=== PATIENT | female | born 1985 | race Caucasian/White ===

== ENCOUNTER 2016-11-17 21:31 | Inpatient (IN) ==
[2016-11-17] MEDS ORDERED: Ondansetron 4 MG/2 ML VIAL IVP ONE ×2 (21:58→23:51)
[2016-11-17] MEDS ORDERED: 0.9 % Sodium Chloride 1,000 ML IVC ONE ×2 (21:58→23:19)
[2016-11-17] MEDS ORDERED: Ketorolac 30 MG/ML VIAL IVP ONE (21:58)
[2016-11-17 22:02] LABS: Bilirubin,Urine Negative (Negative); Blood,Urine Moderate (Negative); Clarity,Urine Cloudy (Clear); Color,Urine Yellow (Yellow); Glucose,Urine (UA) Normal (Normal); Ketones,Urine Negative (Negative); Leukocyte Esterase,Urine Small (Negative); Nitrite,Urine Positive (Negative); PH,Urine 6.5 pH Units (5.0-8.0); Protein,Urine 30 mg/dL (Neg-Trace); Specific Gravity,Urine 1.018 (1.010-1.025); Urobilinogen,Urine Normal (Normal)
[2016-11-17 22:04] LABS: Bacteria,Urine Many per hpf (None-Few); Hyaline Casts,Urine None Seen per lpf (None-Few); RBC,Urine 15-30 per hpf (0-3); Squamous Epithelial Cell,Urine Many per lpf (None-Few)
--- NOTE | 2016-11-17 22:35 | Emergency Department Note ---
Disposition Clinical Impression: Pyelonephritis Disposition: Admitted As Inpatient Condition: Good Time of Disposition: 01:12 General Adult HPI - General Chief complaint: ED Abdominal Pain Stated complaint: right flank pain Time Seen by Provider: 11/17/16 21:38 Source: patient Mode of arrival: ambulatory Limitations: no limitations Nursing Notes Reviewed: Yes Vital Signs Reviewed: Yes - History of Present Illness HPI Narrative: Three-day history of right-sided flank pain. Denies any nausea vomiting or diarrhea. Denies any burning on urination however does report dark urine and a foul smell to her urine. Denies any fevers at home but is reporting a fever here. There are no provoking or alleviating factors. Pain Scale: 10 - Related Data Home Medications Medication Instructions Recorded Confirmed Buspirone HCl [Buspar] 10 mg PO TID 11/18/16 11/18/16 Quetiapine Fumarate [SEROquel] 300 mg PO HS 11/18/16 11/18/16 Allergies Allergy/AdvReac Type Severity Reaction Status Date / Time zolmitriptan [From Zomig] Allergy See Verified 11/17/16 21:35 Comments Review of Systems: Patient complaining of a three-day history of right flank pain. She states that her urine is dark in color and has a foul odor. She denies any dysuria. She denies any fevers at home but does have a fever here. No radiation of the pain. No alleviating factors for the pain. All systems ED: reviewed and negative except as stated. Past Medical History - Past Medical History Medical history: Reports: no medical history - Social History Smoking Status: Current every day smoker Smokeless Tobacco Status: No Alcohol use: Reports: none Drug use: Reports: none Physical Exam - General Limitations: no limitations General appearance: alert, in distress (Appears in pain) - Head Head exam: atraumatic, normocephalic, normal inspection - Eye Eye exam: Present: normal appearance, PERRL, EOMI, scleral icterus. Absent: nystagmus - ENT ENT exam: normal exam, normal oropharynx, mucous membranes moist - Neck Neck exam: Present: normal inspection, full ROM, trachea midline. Absent: tenderness, meningismus - Chest Chest inspection: Present: normal inspection, tenderness. Absent: symmetric chest wall rise - Respiratory Respiratory exam: Present: normal lung sounds bilaterally. Absent: respiratory distress, wheezes - Cardiovascular Cardiovascular exam: Present: regular rate, normal rhythm, normal heart sounds - Abdominal Exam Abdominal exam: Present: soft, Non-Tender, normal bowel sounds. Absent: tenderness, distention, guarding, rebound, rigidity, organomegaly - Extremities Exam Extremities exam: Present: normal inspection, full ROM, normal capillary refill. Absent: tenderness, pedal edema - Back Exam Back exam: Present: normal inspection, full ROM, CVA tenderness (R). Absent: tenderness - Neurological Exam Neurological exam: Present: alert, oriented X3 - Psychiatric Psychiatric exam: Present: normal affect, normal mood - Skin Skin exam: Present: warm, dry, intact, normal color. Absent: rash, cyanosis, diaphoresis Course Course Narrative: Female patient presenting to the emergency department with a three-day history of right side pain. She denies any fevers or chills. She denies any nausea vomiting or diarrhea. She is febrile while she is here. She reports that she has no burning on urination or vaginal discharge. She does report her urine is dark in color and has a foul odor. She reports Drinking a lot of soda. She states the pain is increased when she takes a deep breath. She denies any shortness of breath or chest pain. On exam she is resting comfortably in bed and is alert and oriented. Her left sounds are clear heart tones are normal. Her abdomen is soft and nontender on deep palpation. There is no signs of organomegaly or any masses noted on exam. She points to where the pain is and this appears to be around the tip of rib 12. It is around mid axillary line. On the right. She has a negative Rory sign on both sides. There is no tenderness at McBurney's point and there is no Chu sign. We are providing patient with pain medication while she is here. We are also giving her fluid and did a basic lab workup. She does have a urinary tract infection by UA. She is positive for nitrites as well as look esterase. Also has some blood in her urine. Patient has a pyelonephritis. We will start her on Rocephin at this time. We are still awaiting lab work. We will scan patient's abdomen. We will admit Her to the hospital. - Reevaluation(s) Reevaluation #1: Patient's CT shows some punctate renal calculi but still in the kidneys. These are not moving currently. It also shows some perinephric stranding around her right kidney which is consistent with our diagnosis of pyelonephritis. Time: 01:11 - Consultations Consultation #1: Dr Benton accepted patient in stable condition. Time: 00:32 Vital Signs Temperature 101.7 F H 11/17/16 21:32 Pulse Rate 126 11/17/16 21:32 Respiratory Rate 16 11/17/16 21:32 Blood Pressure 111/73 11/17/16 21:32 O2 Sat by Pulse Oximetry 97 11/17/16 21:32 Temperature 99.3 F 11/18/16 01:15 Pulse Rate 98 11/18/16 01:15 Respiratory Rate 20 11/18/16 01:15 Blood Pressure 105/69 11/18/16 01:15 O2 Sat by Pulse Oximetry 100 11/18/16 01:15 Oxygen Delivery Oxygen Delivery Room Air Medical Decision Making - Lab Data Lab results reviewed: Yes I reviewed the patient's lab results. Result diagrams: 11/17/16 22:20 11/17/16 22:20 Lab Results 11/17/16 11/17/16 11/17/16 Range/Units 21:58 22:20 22:20 WBC 14.0 H (4.3-11.1) K/mcL RBC 4.99 H (3.82-4.97) M/mcL Hgb 14.7 (11.5-15.4) g/dL Hct 44.6 (35.3-44.9) % MCV 89.4 (83.0-100.0) fL MCH 29.5 (28.0-33.3) pg MCHC 33.0 (31.6-35.5) g/dL RDW 12.1 (11.5-14.5) % Plt Count 271 (140-400) K/mcL MPV 10.6 (9.4-12.4) fL Immature Gran % 0.4 (0-4) % Seg Neutrophils % 82.3 % Lymphocytes % 10.6 % Monocytes % 6.2 % Eosinophils % 0.4 % Basophils % 0.1 % Neutrophils # 11.5 H (1.6-8.9) K/mcL Lymphocytes # 1.5 (0.6-4.6) K/mcL Monocytes # 0.9 (0.0-1.3) K/mcL Eosinophils # 0.1 (0.0-0.6) K/mcL Basophils # 0.0 (0.0-0.2) K/mcL Sodium 137 (136-145) mEq/L Potassium 3.7 (3.5-4.5) mEq/L Chloride 102 (98-109) mEq/L Carbon Dioxide 25 (19-29) mEq/L BUN 6 L (7-20) mg/dL Creatinine 0.75 (0.57-1.11) mg/dL Est GFR ( Amer) > 60 (> 60) Est GFR (Non-Af Amer) > 60 (> 60) BUN/Creatinine Ratio 8 (6-26) Glucose 112 H (70-99) mg/dL Calculated Osmolality 282 (280-300) Lactic Acid (0.5-2.2) mmol/L Calcium 9.6 (8.6-10.8) mg/dL Total Bilirubin 0.6 (0.2-1.2) mg/dL Direct Bilirubin 0.2 (0.0-0.5) mg/dL Indirect Bilirubin 0.4 (0.0-1.2) mg/dL AST 30 (5-34) Units/L ALT 49 (0-55) Units/L Alkaline Phosphatase 60 (38-126) Units/L Serum Total Protein 7.7 (6.0-8.3) g/dL Albumin 3.8 (3.5-5.0) g/dL Globulin 3.9 H (2.4-3.5) g/dL Albumin/Globulin Ratio 1.0 L (1.1-2.2) Lipase 13 (8-78) Units/L Urine Color Yellow (Yellow) Urine Clarity Cloudy A (Clear) Urine pH 6.5 (5.0-8.0) pH Units Ur Specific [place] 1.018 (1.010-1.025) Urine Protein 30 H (Neg-Trace) mg/dL Urine Glucose (UA) Normal (Normal) mg/dL Urine Ketones Negative (Negative) mg/dL Urine Blood Moderate H (Negative) Urine Nitrite Positive A (Negative) Urine Bilirubin Negative (Negative) Urine Urobilinogen Normal (Normal) mg/dL Ur Leukocyte Esterase Small H (Negative) Urine Microscopic RBC 15-30 H (0-3) per hpf Urine Microscopic WBC 5-15 H (0-3) per hpf Ur Squamous Epith Cells Many H (None-Few) per lpf Urine Bacteria Many H (None-Few) per hpf Hyaline Casts None Seen (None-Few) per lpf Ur Culture Indicated? YES A (NO) 11/17/16 Range/Units 22:20 WBC (4.3-11.1) K/mcL RBC (3.82-4.97) M/mcL Hgb (11.5-15.4) g/dL Hct (35.3-44.9) % MCV (83.0-100.0) fL MCH (28.0-33.3) pg MCHC (31.6-35.5) g/dL RDW (11.5-14.5) % Plt Count (140-400) K/mcL MPV (9.4-12.4) fL Immature Gran % (0-4) % Seg Neutrophils % % Lymphocytes % % Monocytes % % Eosinophils % % Basophils % % Neutrophils # (1.6-8.9) K/mcL Lymphocytes # (0.6-4.6) K/mcL Monocytes # (0.0-1.3) K/mcL Eosinophils # (0.0-0.6) K/mcL Basophils # (0.0-0.2) K/mcL Sodium (136-145) mEq/L Potassium (3.5-4.5) mEq/L Chloride (98-109) mEq/L Carbon Dioxide (19-29) mEq/L BUN (7-20) mg/dL Creatinine (0.57-1.11) mg/dL Est GFR ( Amer) (> 60) Est GFR (Non-Af Amer) (> 60) BUN/Creatinine Ratio (6-26) Glucose (70-99) mg/dL Calculated Osmolality (280-300) Lactic Acid 1.1 (0.5-2.2) mmol/L Calcium (8.6-10.8) mg/dL Total Bilirubin (0.2-1.2) mg/dL Direct Bilirubin (0.0-0.5) mg/dL Indirect Bilirubin (0.0-1.2) mg/dL AST (5-34) Units/L ALT (0-55) Units/L Alkaline Phosphatase (38-126) Units/L Serum Total Protein (6.0-8.3) g/dL Albumin (3.5-5.0) g/dL Globulin (2.4-3.5) g/dL Albumin/Globulin Ratio (1.1-2.2) Lipase (8-78) Units/L Urine Color (Yellow) Urine Clarity (Clear) Urine pH (5.0-8.0) pH Units Ur Specific [place] (1.010-1.025) Urine Protein (Neg-Trace) mg/dL Urine Glucose (UA) (Normal) mg/dL Urine Ketones (Negative) mg/dL Urine Blood (Negative) Urine Nitrite (Negative) Urine Bilirubin (Negative) Urine Urobilinogen (Normal) mg/dL Ur Leukocyte Esterase (Negative) Urine Microscopic RBC (0-3) per hpf Urine Microscopic WBC (0-3) per hpf Ur Squamous Epith Cells (None-Few) per lpf Urine Bacteria (None-Few) per hpf Hyaline Casts (None-Few) per lpf Ur Culture Indicated? (NO) - Radiology Data Radiology results reviewed: Yes I reviewed the patient's radiology results. Abdomen/Pelvis CT 11/18/16 23:51 IMPRESSION: 1. Punctate bilateral nonobstructing renal calculi. No distal calculi are identified. 2. Right-sided perinephric fat stranding may indicate pyelonephritis. D/ / Tulio Kaba MD / Tulio Kaba MD Interpreting Provider: Tulio Kaba MD Attestation Statement - Attestation Attestation: I personally interviewed and examined this patient and my medical decision- making was reviewed with the ED Resident Physician, Dr. Barnett I agree with the documented findings, disposition and treatment plan as described except to the extent set forth below. Patient is a 31-year-old white female who presents to emergency today with a three-day history of gradually worsening right flank pain and urinary symptoms. Patient's also complaining of some mild nausea. She arrives febrile and tachycardic with a stable blood pressure. Patient states that her urine foul- smelling and dark in color although denies any gross blood. Patient denies any anterior abdominal pain, no bowel changes, no other associated symptoms. I agree with patient's physical exam findings as documented in the chart. Urinalysis showed findings consistent with urinary tract infection. Patient with a leukocytosis and a left shift. is negative. Upon arrival patient had IV saline well-established was placed on lead carpenter and pulse ox and had IV fluids initiated as well as Toradol for fever. After urinalysis was reviewed patient was started on IV Rocephin. Patient's vital signs improved after IV fluid resuscitation. Discussed patient with results of the labs and urinalysis and likely suspect pyelonephritis. Recommended admission to the hospital with patient is agreement with. On reevaluation patient was still complaining of moderate right flank pain. Patient does have moderate blood in the urine which could be from her infection but we will send the patient for CT imaging to rule out kidney stone as patient's never had this in the past. We will plan to bring the patient in for continued IV antibiotics and if the stone is present we will contact urology consult them from the ED.
[2016-11-17 22:36] LABS: Basophils % 0.1 %; Eosinophils # 0.1 K/mcL (0.0-0.6); Eosinophils % 0.4 %; Hematocrit 44.6 % (35.3-44.9); Hemoglobin 14.7 g/dL (11.5-15.4); Immature Granulocytes % 0.4 % (0-4); Lymphocytes # 1.5 K/mcL (0.6-4.6); Lymphocytes % 10.6 %; Mean Corpuscular Hemoglobin 29.5 pg (28.0-33.3); Mean Corpuscular Volume 89.4 fL (83.0-100.0); Mean Platelet Volume 10.6 fL (9.4-12.4); Monocytes # 0.9 K/mcL (0.0-1.3); Monocytes % 6.2 %; Neutrophils # 11.5 K/mcL (1.6-8.9); Platelet Count 271 K/mcL (140-400); Red Blood Count 4.99 M/mcL (3.82-4.97); Red Cell Distribution Width 12.1 % (11.5-14.5); Segmented Neutrophils % 82.3 %
[2016-11-17 22:52] LABS: Alanine Aminotransferase 49 Units/L (0-55); Albumin 3.8 g/dL (3.5-5.0); Alkaline Phosphatase 60 Units/L (38-126); Aspartate Amino Transferase 30 Units/L (5-34); BUN/Creatinine Ratio 8 (6-26); Bilirubin,Direct 0.2 mg/dL (0.0-0.5); Bilirubin,Indirect 0.4 mg/dL (0.0-1.2); Bilirubin,Total 0.6 mg/dL (0.2-1.2); Blood Urea Nitrogen 6 mg/dL (7-20); Calcium 9.6 mg/dL (8.6-10.8); Carbon Dioxide 25 mEq/L (19-29); Chloride 102 mEq/L (98-109); Globulin 3.9 g/dL (2.4-3.5); Glucose 112 mg/dL (70-99); Lipase 13 Units/L (8-78); Osmolality,Calculated 282 (280-300); Potassium 3.7 mEq/L (3.5-4.5); Sodium 137 mEq/L (136-145); Total Protein 7.7 g/dL (6.0-8.3); eGFR For African Americans > 60 (> 60); eGFR For Non-African Americans > 60 (> 60)
[2016-11-17] MEDS ORDERED: *HR* Morphine 2 MG/ML SYRINGE IVP ONE (23:51)
[2016-11-18] MEDS ORDERED: *HR* HYDROmorphone (PF) 1 MG/ML SYRINGE IVP ONE (02:03)
[2016-11-18] MEDS ORDERED: Naloxone 0.4 MG/ML INJ IVP PRN (04:04)
[2016-11-18] MEDS ORDERED: Acetaminophen 325 MG TABLET PO PRN (04:09)
--- NOTE | 2016-11-18 04:11 | Internal Med History&Physical ---
Date of Encounter: 11/18/16 Time of Encounter: 04:10 Assessment and Plan (1) Acute pyelonephritis Current visit: Yes Status: Acute Emperically treat with Ceftriaxone. Urine cultures pending. Titrate antibiotics based on cultures. (2) Sepsis Current visit: Yes Status: Acute Likely secondary to UTI/pyelonephritis. Continue with the IV fluids and antibiotics. Lactate level is not elevated. Qualifiers: Sepsis type: sepsis due to unspecified organism Qualified Code(s): A41.9 - Sepsis, unspecified organism (3) Nephrolithiasis Current visit: Yes Status: Acute Non-obstructive calculi. No acute intervention at this time (4) DVT prophylaxis Current visit: Yes Status: Acute SCDs Internal Medicine - H&P: HPI Chief complaint: Right flank pain Admitted From: Emergency Dept Plans for Post Hospital Care: Home History of present illness: Ms. Chen is a 31 year old female With h/o cholecystectomy and family h/o nephrolithiasis presents with three-day history of right-sided flank pain, which is gradually worsening. Sharp, severe pain, which is worse on deep breath and cough. Denies burning on urination, but reports dark urine and foul smell to her urine. Denies any fevers at home but was febrile with temperature of 101.7F. Denies nausea, vomiting, chest pain, shortness of breath, cough, expectoration, changes in bowel habits. Patient was evaluated in the emergency department. Urine test negative and had CT scan of the abdomen and pelvis, which was suspicious for right pyelonephritis. she was given ceftriaxone and admitted to the hospitalist service for further management. Past Med Surg Social Fam HX - Past Medical History Medical history: no medical history - Social History Smoking Status: Current every day smoker Smokeless Tobacco Status: No Alcohol use: none Drug use: none - Family History Father Hx Family Cardiac Disorders: Yes (HTN) Hx Family Endocrine Disorder: Yes (DM) Internal Medicine - H&P: Meds Buspirone HCl [Buspar] 10 mg PO TID 11/18/16 [History] Quetiapine Fumarate [SEROquel] 300 mg PO HS 11/18/16 [History] Allergies zolmitriptan [From Zomig] Allergy (Verified 11/17/16 21:35) See Comments All Systems PM: A 10-system review of systems was performed and is negative for pertinent findings except as documented above in the HPI. - Constitutional Vitals: Temp Pulse Resp BP Pulse Ox 99.3 F 98 20 105/69 100 11/18/16 01:15 11/18/16 01:15 11/18/16 01:15 11/18/16 01:15 11/18/16 01:15 Exam: General: Not in acute distress at the time of my evaluation HEENT: Oral mucosa is moist. No conjunctival palor or scleral icterus Neck: No obvious neck swellings Lungs: Clear to auscultation Cardiac: Regular rate and rhythm. No significant murmurs Abdomen: Soft, non tender. No significant renal angle tenderness. Bowel sounds present Genitourinary: No tellez catheter Neurological: Alert and oriented. No gross localizing deficits Psych: Not aggressive or agitated Extremities: no significant leg edema Skin: No generalized rash Internal Med - H&P Results - Labs CBC & Chem 7: 11/18/16 04:30 11/18/16 04:30 - Impressions ITS Impressions Abdomen/Pelvis CT 11/18/16 23:51 IMPRESSION: 1. Punctate bilateral nonobstructing renal calculi. No distal calculi are identified. 2. Right-sided perinephric fat stranding may indicate pyelonephritis. D/ / Tulio Kaba MD / Tulio Kaba MD Interpreting Provider: Tulio Kaba MD
[2016-11-18] MEDS: 0.9 % Sodium Chloride 1,000 ML IVC SCH ×4 (04:39→21:10)
[2016-11-18] MEDS: Ketorolac 30 MG/ML VIAL IVP PRN ×3 (04:41→19:29)
[2016-11-18 05:15] LABS: Basophils % 0.1 %; Eosinophils # 0.1 K/mcL (0.0-0.6); Eosinophils % 0.6 %; Hematocrit 35.7 % (35.3-44.9); Immature Granulocytes % 0.3 % (0-4); Lymphocytes # 2.6 K/mcL (0.6-4.6); Mean Corpuscular HGB Conc 33.1 g/dL (31.6-35.5); Mean Corpuscular Hemoglobin 29.9 pg (28.0-33.3); Mean Corpuscular Volume 90.6 fL (83.0-100.0); Mean Platelet Volume 11.1 fL (9.4-12.4); Monocytes # 1.2 K/mcL (0.0-1.3); Monocytes % 7.7 %; Neutrophils # 11.5 K/mcL (1.6-8.9); Platelet Count 233 K/mcL (140-400); Red Blood Count 3.94 M/mcL (3.82-4.97); Red Cell Distribution Width 12.3 % (11.5-14.5); Segmented Neutrophils % 74.3 %
[2016-11-18 05:16] LABS: Hemoglobin 11.8 g/dL (11.5-15.4)
[2016-11-18 05:25] LABS: BUN/Creatinine Ratio 8 (6-26); Blood Urea Nitrogen 6 mg/dL (7-20); Carbon Dioxide 21 mEq/L (19-29); Chloride 108 mEq/L (98-109); Glucose 154 mg/dL (70-99); Osmolality,Calculated 283 (280-300); Potassium 3.1 mEq/L (3.5-4.5); Sodium 136 mEq/L (136-145); eGFR For African Americans > 60 (> 60); eGFR For Non-African Americans > 60 (> 60)
[2016-11-18 05:28] LABS: Chol/HDL Ratio 2.9 (0-4.9)
[2016-11-18 05:29] LABS: Calcium 7.8 mg/dL (8.6-10.8)
[2016-11-18] MEDS: traMADol 50 MG TABLET PO PRN ×3 (07:39→23:08)
[2016-11-18] MEDS: Lactobacillus 1 EACH CAP.SPRINK PO SCH ×2 (08:52→22:00)
[2016-11-19] MEDS: 0.9 % Sodium Chloride 1,000 ML IVC SCH ×3 (03:53→16:13)
[2016-11-19] MEDS: Ketorolac 30 MG/ML VIAL IVP PRN ×2 (03:55→13:35)
[2016-11-19 04:35] LABS: Basophils % 0.2 %; Eosinophils # 0.2 K/mcL (0.0-0.6); Eosinophils % 1.6 %; Hematocrit 37.2 % (35.3-44.9); Hemoglobin 11.9 g/dL (11.5-15.4); Immature Granulocytes % 0.4 % (0-4); Lymphocytes # 2.2 K/mcL (0.6-4.6); Lymphocytes % 24.1 %; Mean Corpuscular Hemoglobin 29.8 pg (28.0-33.3); Mean Corpuscular Volume 93.2 fL (83.0-100.0); Mean Platelet Volume 11.2 fL (9.4-12.4); Monocytes # 0.9 K/mcL (0.0-1.3); Monocytes % 9.4 %; Platelet Count 209 K/mcL (140-400); Red Blood Count 3.99 M/mcL (3.82-4.97); Red Cell Distribution Width 12.3 % (11.5-14.5); Segmented Neutrophils % 64.3 %
[2016-11-19 04:58] LABS: BUN/Creatinine Ratio 15 (6-26); Blood Urea Nitrogen 10 mg/dL (7-20); Calcium 8.3 mg/dL (8.6-10.8); Carbon Dioxide 25 mEq/L (19-29); Chloride 111 mEq/L (98-109); Glucose 98 mg/dL (70-99); Osmolality,Calculated 293 (280-300); Potassium 3.8 mEq/L (3.5-4.5); Sodium 142 mEq/L (136-145); eGFR For African Americans > 60 (> 60); eGFR For Non-African Americans > 60 (> 60)
[2016-11-19] MEDS: Lactobacillus 1 EACH CAP.SPRINK PO SCH ×2 (07:59→21:01)
--- NOTE | 2016-11-19 15:15 | Internal Med Progress Note ---
Date of Encounter: 11/19/16 Time of Encounter: 15:12 - Assessment and plan (1) Sepsis Current Visit: Yes Status: Acute Assessment and plan: resolved. Qualifiers: Sepsis type: sepsis due to unspecified organism Qualified Code(s): A41.9 - Sepsis, unspecified organism (2) Acute pyelonephritis Current Visit: Yes Status: Acute Assessment and plan: clinically better urine cx growing gram negative rods, final cx sensitivity awaiting will contiue IV ceftriaxone for now until final results. leucocytosis has resolved. denies any urinary symptoms. (3) Nephrolithiasis Current Visit: Yes Status: Acute Assessment and plan: has b/l non obstructive punctate renal stones, no active intervention needed at this time. - Subjective Interval history: Patient seen at the bedside, admitted for UTI/pyelonephritis. Denies any complaints, no fevers or leukocytosis. - Constitutional Vitals: Temp Pulse Resp BP Pulse Ox 98.1 F 99 16 102/66 99 11/19/16 11:27 11/19/16 11:27 11/19/16 11:27 11/19/16 11:27 11/19/16 11:27 General appearance: Present: A&O X 3, no acute distress Exam: neck - supple Chest bilateral clear, no added sounds. CVS S1 and S2, no murmurs rubs or gallops. Abdomen soft, nontender, bowel sounds are present. Extremities no edema. Neuro alert and awake, no focal neuro deficits Internal Medicine: Result - Labs CBC & Chem 7: 11/19/16 03:49 11/19/16 03:49 Labs: Short CBC 11/19/16 Range/Units 03:49 WBC 9.3 (4.3-11.1) K/mcL Hgb 11.9 (11.5-15.4) g/dL Hct 37.2 (35.3-44.9) % Plt Count 209 (140-400) K/mcL Neutrophils # 6.0 (1.6-8.9) K/mcL BMP 11/19/16 03:49 Sodium 142 Potassium 3.8 Chloride 111 H Carbon Dioxide 25 BUN 10 Creatinine 0.67 Glucose 98 Calcium 8.3 L Consult Discharge Plan - Plan Referrals: Amaury Rinaldi MD [Primary Care Provider] -
[2016-11-19] MEDS: traMADol 50 MG TABLET PO PRN (19:39)
[2016-11-19] MEDS ORDERED: Ondansetron 4 MG/2 ML VIAL IVP PRN (20:01)
[2016-11-20] MEDS: Ketorolac 30 MG/ML VIAL IVP PRN (01:07)
[2016-11-20] MEDS: 0.9 % Sodium Chloride 1,000 ML IVC SCH ×3 (04:16→07:43)
[2016-11-20 07:18] LABS: HIV-1&2 Antibody & p24 Ag Nonreactive (Nonreactive)
[2016-11-20 07:40] VITALS: BP 91/57
[2016-11-20] MEDS: Lactobacillus 1 EACH CAP.SPRINK PO SCH (08:34)
[2016-11-20] MEDS: traMADol 50 MG TABLET PO PRN (08:57)
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
[2016-11-20 12:06] LABS: Hepatitis B Surface Antigen Nonreactive (Nonreactive)
[2016-11-22 14:43] LABS: Herpes Simplex PCR Qual Res NOT DETECTED
== END 2016-11-20 10:24 | disposition home or self-care (01) ==
LOC: EMEROO 21:31 → 3BNU 21:31
PROVIDERS: ADMIT Internal Medicine; ATTEND Nurse Practitioner Family